=== PATIENT | female | born 1965 | race African-American/Black ===

== ENCOUNTER 2017-06-24 13:01 | Emergency (ER) | payer MEDICAID ==
[~2017-06-24] VITALS: Ht 157.5 cm; Wt 74.8 kg
[2017-06-24] MEDS ORDERED: SODIUM CHLORIDE 0.9% 1,000 ML IV ONE (13:16)
[2017-06-24 13:46] LABS: Basophils # (auto) 0.1 uL; Basophils % (auto) 0.6 % (0.0-2.0); Eosinophils # (auto) 0.1 uL; Eosinophils % (auto) 1.1 % (0.0-7.0); Hematocrit 34.6 % (36.0-46.0); Hemoglobin 11.4 g/dL (12.2-16.2); Lymphocytes # (auto) 1.8 uL; Lymphocytes % (auto) 16.6 % (10.0-50.0); Mean Corpuscular Hemoglobin 26.7 pg (28.0-32.0); Mean Platelet Volume 7.7 fL (7.4-10.4); Monocytes # (auto) 1.6 uL; Monocytes % (auto) 14.2 % (0.0-12.0); Neutrophils # (auto) 7.5 uL; Neutrophils % (auto) 67.5 % (37.0-80.0); Platelet Count (auto) 289 10^3/uL (140-450); Red Cell Distribution Width 14.4 % (11.6-16.0); White Blood Cell 11.1 10^3/uL (4.4-10.8)
[2017-06-24 14:00] LABS: Albumin 2.9 g/dL (3.4-5.0); BUN/Creatinine Ratio 16.9; Calcium 10.4 mg/dL (8.5-10.1); Potassium 3.9 mmol/L (3.5-5.1)
[2017-06-24 14:03] LABS: Bilirubin, Total 0.5 mg/dL (0.2-1.0); Total Protein 7.8 g/dL (6.4-8.2)
[2017-06-24 16:07] VITALS: BP 120/75
== END 2017-06-24 16:10 | disposition home or self-care (01) ==
LOC: ER 13:01
DX: R53.1 Weakness (principal); F17.210 Nicotine dependence, cigarettes, uncomplicated
CPT/HCPCS: 36415; 80053; 85025; 96360; 99284; J7030